=== PATIENT | female | born 1950 | race Caucasian/White ===

== ENCOUNTER → 2016-06-13 | Outpatient (CLI) | payer MEDICARE ==
[~2016-06-13] MED LIST: ACTOS PO; DIOVAN HCT 160/1 TAB PO; DIOVAN HCT 80/11 TAB PO; HYDROCODON-ACE1 EACH PO; LANTUS SOL100 UNIT/1; LEVOXYL100 MC1 PO; LISINOPRIL-HCTZ1 T18 PO; LOPRESSOR PO; LOSARTAN-HCTZ1 EACH PO; METFORMIN; METFORMIN HCL500 M1 PO; MOBIC PO; NEURONTIN300 MG PO; NORCO 5/325 TAB1 TAB PO; NOVOLOG FL100 UNIT/1; OMEPRAZOLE20 M2 PO; SYNTHROID PO; VITAMIN D1000 UNIT PO; ZOCOR20 MG PO
== END | disposition home or self-care (01) ==
LOC: CECH 13:03
DX: R53.82 Chronic fatigue, unspecified (principal); E11.9 Type 2 diabetes mellitus without complications; R06.02 Shortness of breath; I08.1 Rheumatic disorders of both mitral and tricuspid valves
CPT/HCPCS: 93306